=== PATIENT | male | born 1955 | race Caucasian/White ===

== ENCOUNTER 2016-06-12 14:29 | Emergency (ER) | payer OTHER ==
[~2016-06-12] VITALS: Ht 175.3 cm; Wt 72.0 kg
[~2016-06-12 14:29] MED LIST: ACCUTES19; AMLO5 PO; BACL10TA PO; BLOO1MIS29 SQ; BUPR150CR PO; DULO1CAP3 PO; GABA100C4 PO; IBUP800T23 PO; LANCETS1 MI1; LEVE500 PO; METF500T PO; OXYC-395 PO; PANT40TA3 PO; PLAV75TA29 PO; PROM25TA5 PO; TRIA1SPR5; VENTAER INH; WALKER WHEELS/F1 MIS
[2016-06-12 14:31] VITALS: BP 146/75; PULSE 63; RESP 16; TEMP 97.9; O2SAT 98
[2016-07-12] MEDS ORDERED: WARF-23 PO ×3 (13:25→13:55)
[2016-07-12] MEDS ORDERED: ATOR40TA16 PO (13:25)
[2016-07-12] MEDS ORDERED: ENOX80IN SQ (13:25)
[2016-07-12] MEDS ORDERED: LISI2.5T3 PO (13:25)
[2016-07-12] MEDS ORDERED: METF1000 PO (13:38)
[2016-07-12] MEDS ORDERED: DULO1CAP3 PO (14:05)
[2016-07-12] MEDS ORDERED: GABA300C5 PO (14:56)
[2016-07-12] MEDS ORDERED: VITA10002 PO (14:56)
[2016-07-25] MEDS ORDERED: WARF-20 PO (08:52)
[2016-07-25] MEDS ORDERED: WARF-23 PO (08:53)
[2016-07-29] MEDS ORDERED: NICO14DI T-DERMAL (16:32)
[2016-08-05] MEDS ORDERED: VENTAER INH (16:33)
[2016-08-14] MEDS ORDERED: WARF-20 PO (13:02)
[2016-08-29] MEDS ORDERED: METF500T PO (12:54)
== END 2016-06-12 16:10 | disposition left against medical advice (07) ==
LOC: NEPB 14:29
DX: G98.8 Other disorders of nervous system (principal)
CPT/HCPCS: 99281